=== PATIENT | female | born 1945 | race Caucasian/White ===

== ENCOUNTER 2024-02-14 13:46 | Inpatient (IN) | payer OTHER ==
[~2024-02-14] VITALS: Ht 167.6 cm; Wt 85.2 kg
--- NOTE | 2024-02-14 14:28 | ED.PDOC ---
Dia. trauma (HPI) HPI Comments HPI: 78y F who presents to the ED for chief complaint of fall injury. Pt had the following ED course: -pt states she went to check on neighbor and states she was walking across the street and does not remember but had unknown syncopal episode and was found by unconscious on the sidewalk - pt states she does not remember what happened but states she fell from standing position -pt now in the ED, has noted bruise by the L side of her forehead - pt otherwise in the ED, is alert and oriented x 4 and able to answer all questions and no changes in vision, gait or speech are noted - we otherwise suspect pt had loss of consciousness VITALS: Temp: 97.9 F RR: 17 02 sat : 97% on room air HR: 97 BP: 160/87 PMH: thyroid, hypertension, PSH: hysterectomy, knee repair Social history: denies tobacco use, denies ETOH use, denies drug use Medications: diltiazem, alprazolam, losartan, Allergies: denies HPI: Poor Historian. Past Medcial History: Past Surgical History: REVIEW OF SYSTEMS: CONSTITUTIONAL: Denies acute: fever, diaphoresis, chills, generalized weakness. HEAD: Denies acute: photophobia Eyes: Denies acute: Double vision, vision loss, eye pain, eye discharge. EARS: Denies acute: tinnitus, hearing loss, ear discharge, ear pain, THROAT: Denies acute: sore throat, swelling, difficulty swallowing , pain with swallowing, change in voice. NECK: Denies acute: neck pain, neck swelling, stiff neck. HEART: Denies acute : chest pain, palpitations, LUNGS: Denies acute: SOB, wheezing, cough, hemoptysis ABDOMEN: Denies acute: abdominal pain, Nausea, Vomiting, diarrhea, melena , hematemesis, hematochezia SKIN: Denies acute: rash, redness, lesions, itchiness. EXTREMITIES: Denies acute: calf pain, numbness, tingling, weakness, denies pain in extremity. Denies acute: Low back pain. Neuro: Denies acute: focal neurological deficit, motor or sensory focal neurological deficit, tremors, seizure like activity, confusion, dizziness, change in mental status, loss of bowel or bladder function, cauda equina like symptoms. : Denies acute: dysuria, hematuria, flank pain, increase in urinary frequency. PSYCH: Denies acute: hallucination, suicidal ideation, homicidal ideation. FEMALE: Denies acute: abnormal vaginal bleeding, foul odor, unusual discharge. PHYSICAL EXAM: General: no acute distress, awake and alert. Head: normocephalic, noted left eyebrow forehead contusion and bruise Neck: supple, trachea is midline, no swelling. Throat: Normal phonation. Eyes:, no erythema, no purulent discharge, no proptosis, no icterus. Heart: regular rate, regular rhythm, no significant murmur appreciated. Lungs: no apparent respiratory distress, Able to speak in full sentences. No wheezing, no rhonchi, no crackles. No stridors Clear to auscultation bilaterally. Abdomen: non tender to palpation, non distended, soft, no guarding, no rebound, + bowel sounds. Neuro: Awake, Alert, oriented to name, self, situation, follows commands GCS=15. Speech is normal. Skin: no petechia, no purpura, no cyanosis, non-pale, not jaundice. Lower extremities: --trace bilateral - Pitting edema no deformity, no focal swelling, no calf TTP. Makes eye contact. moves all four extremities. Face: no apparent facial droop. Ambulating in the ED independently. PERRLA, EOM-I. No evidence of entrapment. There is noted left periorbital contusion and left eye swollen lid CN 2-12 are grossly intact, No nystagmus. No nuchal rigidity, Kernig's sign, Brudzinski's sign, no meningeal signs. Chief Complaint: Fall Injury Time Seen by MD: 14:51 Reviewed notes: Medications, Allergies Allergies: Coded Allergies: NO KNOWN ALLERGIES (Unverified , 02/14/24) Information Source: Patient, Spouse Mode of Arrival: Ambulatory Was a procedure done? Was a procedure done?: No X-Ray, Labs, Meds, VS Vital Signs Date Time Temp Pulse Resp B/P (MAP) Pulse Ox O2 Delivery O2 Flow Rate FiO2 02/14/24 14:21 97.9 97 20 160/87 (111) 97 Lab Test 02/14/24 15:59 Range/Units White Blood Count 13.2 H 4.4-10.8 10^3/uL Red Blood Count 5.42 H 4.0-5.20 10^6/uL Hemoglobin 17.2 H 12.2-16.2 g/dL Hematocrit 49.3 H 36.0-46.0 % Mean Corpuscular Volume 91.0 80.0-100.0 fL Mean Corpuscular Hemoglobin 31.8 28.0-32.0 pg Mean Corpuscular Hemoglobin Concent 34.9 32.0-36.0 g/dL Red Cell Distribution Width 13.3 11.8-14.3 % Platelet Count 251 140-450 10^3/uL Mean Platelet Volume 9.2 6.9-10.8 fL Neutrophils (%) (Auto) 85.6 H 37.0-80.0 % Lymphocytes (%) (Auto) 7.9 L 10.0-50.0 % Monocytes (%) (Auto) 5.1 0.0-12.0 % Eosinophils (%) (Auto) 0.8 0.0-7.0 % Basophils (%) (Auto) 0.6 0.0-2.0 % Neutrophils # (Auto) 11.3 H 1.6-8.6 10 ^3/uL Lymphocytes # (Auto) 1.0 0.4-5.4 10 ^3/uL Monocytes # (Auto) 0.7 0-1.3 10 ^3/uL Eosinophils # (Auto) 0.1 0-0.8 10 ^3/uL Basophils # (Auto) 0.1 0-0.2 10 ^3/uL Nucleated Red Blood Cells 0.2 % Sodium Level 142 136-145 mmol/L Potassium Level 3.4 L 3.5-5.1 mmol/L Chloride Level 103 98-107 mmol/L Carbon Dioxide Level 31 20-31 mmol/L Anion Gap 8 5-15 Blood Urea Nitrogen 25 H 9-23 mg/dL Creatinine 1.07 H 0.550-1.02 mg/dL Glomerular Filtration Rate Calc 53 >90 mL/min BUN/Creatinine Ratio 23.4 H 10.0-20.0 Serum Glucose 110 H 74-106 mg/dL Calcium Level 10.7 H 8.7-10.4 mg/dL Total Bilirubin 0.9 0.2-1.0 mg/dL Aspartate Amino Transferase (AST) 33 13-40 U/L Alanine Aminotransferase (ALT) 20 7-40 U/L Alkaline Phosphatase 96 46-116 U/L Troponin I High Sensitivity 7 </=34 ng/L Total Protein 7.6 5.7-8.2 g/dL Albumin 4.8 3.2-4.8 g/dL [address] [address] Ph: [phone] DIAGNOSTIC IMAGING Diagnostic Imaging Report : [id number] Signed PATIENT: PAN DEL TORO ACCT: [id number] UNIT: [id number] : 1945 LOC: ER ROOM / BED: / AGE / SEX: 78 / F ADM STATUS: REG ER SERVICE 1505 ORDERING PHYSICIAN: MATA MOSES DO PROCEDURE(s): FAC2C - MAXILLOFACIAL WITHOUT REASON: fall, head injury ORDER NUMBER(s): [id number], ACCESSION NUMBER(s): [id number] HISTORY: fall, head injury TECHNIQUE: Nonenhanced axial images through the facial bones with coronal and sagittal MPR. Radiation Dose Information: CT Dose: CTDI volume is 56.48 mGy. Dose-length product is 1039.38 mGy*cm FINDINGS: Mandible: No fracture Maxilla: No fracture Pterygoid plates: Intact Zygomatic processes: Intact. Zygomatic arches: Intact Orbits: Soft tissue swelling over the left orbit. Minimally displaced fracture floor of the left orbit. Correlate for entrapment of the inferior rectus muscle. Sinuses: Air-fluid level left maxillary sinus Facial swelling: Soft tissue swelling over the left orbit and left temporal bone. IMPRESSION: 1. No acute facial fractures. 2. Soft tissue swelling over the left eye and left temporal bone with no underlying fracture. 3. Minimally displaced fracture floor of the left orbit. Correlate clinically for clinically significant entrapment of the inferior rectus muscle. 4. Air-fluid level left maxillary sinus. Radiation optimization: All CT scans at this facility use at least one of these dose optimization techniques: automated exposure control mA and/or kV adjustment per patient size (includes targeted exams where dose is matched to clinical indication) or iterative reconstruction. HS:Y ATED BY: MAR MESA Jr., DO DICTATED DATE/TIME: 02/14/24 1556 SIGNED BY: MAR MSEA Jr., DO SIGNED DATE/TIME: 02/14/24 8243 CC: [place] [address] Ph: [phone] DIAGNOSTIC IMAGING Diagnostic Imaging Report : [id number] Signed PATIENT: PAN DEL TORO ACCT: [id number] UNIT: [id number] : 1945 LOC: ER ROOM / BED: / AGE / SEX: 78 / F ADM STATUS: REG ER SERVICE 1417 ORDERING PHYSICIAN: MATA MOSES DO PROCEDURE(s): HWOCT - HEAD WITHOUT CONTRAST REASON: TRAUMA S/P FALL WITH LOC ORDER NUMBER(s): [id number], ACCESSION NUMBER(s): [id number] EXAM: CT HEAD WITHOUT CONTRAST HISTORY: TRAUMA S/P FALL WITH LOC COMPARISON: None TECHNIQUE: Axial images of the head were obtained and reformatted in coronal and sagittal planes. All CT scans at this medical facility are performed using dose modulation techniques as appropriate to a performed exam including the following: Automated exposure control was utilized; adjustment of the MA and/or KV according to patient size; and use of iterative reconstruction technique. CT Dose: CTDI volume is 17.9 mGy. Dose-length product is 1341 mGy*cm FINDINGS: There is no evidence of acute intracranial hemorrhage, mass, mass effect midline shift. There is no hydrocephalus or extra-axial fluid collection. Burnett-white matter differentiation is maintained. There is left periorbital soft tissue swelling. There is a small left supraorbital scalp hematoma. There is likely fracture of the floor of the left orbital wall with sagging of the extraconal fat. There is air-fluid level in the left maxillary sinus with hyperdense contents which may represent blood. The calvarium appears intact. Mastoid air cells are clear. IMPRESSION: 1. No acute intracranial process. 2. There is likely fracture of the floor of the left orbital wall. There is air- fluid level in the left maxillary sinus with hyperdense contents which may represent blood products. 3. Left periorbital soft tissue swelling. There is small left supraorbital scalp hematoma. HS:Y ATED BY: ADOLPH LEAL MD DICTATED DATE/TIME: 02/14/241448 SIGNED BY: ADOLPH LEAL MD SIGNED DATE/TIME: 02/14/241448 CC: [place] [address] Ph: [phone] DIAGNOSTIC IMAGING Diagnostic Imaging Report : [id number] Signed with Addenda PATIENT: PAN DEL TORO ACCT: [id number] UNIT: [id number] : 1945 LOC: ER ROOM / BED: / AGE / SEX: 78 / F ADM STATUS: REG ER SERVICE 16 ORDERING PHYSICIAN: MATA MOSES DO PROCEDURE(s): CS2 - CERVICAL WITHOUT CONTRAST REASON: TRAUMA S/P FALL WITH LOC ORDER NUMBER(s): [id number], ACCESSION NUMBER(s): [id number] ADDENDUM ADDENDUM # 1 HS:Y ORIGINAL REPORT EXAM: CT CERVICAL WITHOUT CONTRAST INDICATION: TRAUMA S/P FALL WITH LOC EXAM DATE: 02/14/2024 02:26 PM COMPARISON: None TECHNIQUE: Multiple axial CT images of the cervical spine were obtained using bone algorithm. Axial and coronal reformatting was done. Bone and soft tissue windows were reviewed. Radiation Dose Information: CT Dose: CTDI volume is 53.82 mGy. Dose-length product is 1341.46 mGy*cm FINDINGS: The cervical alignment is intact. No acute cervical spine fracture is identified. The vertebral body heights are intact. No suspicious osseous lesions are identified. Bony spondylosis and degenerative disc changes worse at C5-6 and 7. Straightening of the normal cervical lordotic curve may be secondary to patient positioning or muscle spasm. There is no prevertebral soft tissue swelling. IMPRESSION: 1. No evidence of acute cervical spine fracture or traumatic malalignment. 2. Degenerative disc changes in bony spondylosis worse at C5-6 and 7. 3. Straightening of the normal cervical lordotic curve. All CT scans at this medical facility are performed using dose modulation techniques as appropriate to a performed exam including the following: Automated exposure control was utilized; adjustment of the MA and/or KV according to patient size; and use of iterative reconstruction technique. ATED BY: MAR MESA Jr., DO DICTATED DATE/TIME: 02/14/24 1535 SIGNED BY: MAR MESA Jr., DO SIGNED DATE/TIME: 02/14/24 1535 CC: EXAM: CT CERVICAL WITHOUT CONTRAST INDICATION: TRAUMA S/P FALL WITH LOC EXAM DATE: 02/14/2024 02:26 PM COMPARISON: None TECHNIQUE: Multiple axial CT images of the cervical spine were obtained using bone algorithm. Axial and coronal reformatting was done. Bone and soft tissue windows were reviewed. Radiation Dose Information: CT Dose: CTDI volume is 53.82 mGy. Dose-length product is 1341.46 mGy*cm FINDINGS: The cervical alignment is intact. No acute cervical spine fracture is identified. The vertebral body heights are intact. No suspicious osseous lesions are identified. Bony spondylosis and degenerative disc changes worse at C5-6 and 7. Straightening of the normal cervical lordotic curve may be secondary to patient positioning or muscle spasm. There is no prevertebral soft tissue swelling. IMPRESSION: 1. No evidence of acute cervical spine fracture or traumatic malalignment. 2. Degenerative disc changes in bony spondylosis worse at C5-6 and 7. 3. Straightening of the normal cervical lordotic curve. All CT scans at this medical facility are performed using dose modulation techniques as appropriate to a performed exam including the following: Automated exposure control was utilized; adjustment of the MA and/or KV according to patient size; and use of iterative reconstruction technique. ATED BY: MAR MESA Jr., DO DICTATED DATE/TIME: 02/14/24 1456 SIGNED BY: MAR MESA Jr., DO SIGNED DATE/TIME: 02/14/24 145 CC: Patient Education/Counseling: Diagnosis, Treatment, Prognosis Family Education/Counseling: Diagnosis, Treatment, Prognosis Comments MDM: Patient presented with the above HPI.----- fall injury-- workup was initiated. patient was found with the above mentioned diagnosis. the following medications were ordered: denies the following tests were ordered: troponin x1, EKG x1, CBC, CMP, CT head without contrast, CT cervical without contrast Patient ED course and VS have been stabilized. Patient has been reassessed in the ED and remained in a stable condition. Patient has been observed in the ED adequate length of time to insure improvement/stability. Escalation of care considered: Consideration of escalation to observation or admission. patient was ADMITTED to the medicine team for further evaluation and treatment of their presentation. All the reports of any imaging studies that were ordered by myself were reviewed by myself. Departure 1 Departure Time of Disposition: 16:40 Impression: Primary Impression: Closed head injury Additional Impressions: Loss of consciousness Head contusion Fracture of left orbital floor Disposition: ADMITTED INPATIENT Admit to: Tele Condition: Guarded Discharged With: Self I personally scribed for MATA MOSES DO ([email or web address]) on 02/14/24 at 14:28. Electronically submitted by Romulo Uribe ([email or web address]). I personally scribed for MATA MOSES DO ([email or web address]) on 02/14/24 at 14:51. Electronically submitted by Romulo Uribe ([email or web address]). I personally scribed for MATA MOSES DO ([email or web address]) on 02/14/24 at 21:05. Electronically submitted by Romulo Uribe ([email or web address]). MATA MOSES DO Feb 14, 2024 14:28
--- NOTE | 2024-02-14 14:50 | DVH ---
EXAM: CT HEAD WITHOUT CONTRAST HISTORY: TRAUMA S/P FALL WITH LOC COMPARISON: None TECHNIQUE: Axial images of the head were obtained and reformatted in coronal and sagittal planes. All CT scans at this medical facility are performed using dose modulation techniques as appropriate t o a performed exam including the following: Automated exposure control was utilized; adjustment of th e MA and/or KV according to patient size; and use of iterative reconstruction technique. CT Dose: CTDI volume is 17.9 mGy. Dose-length product is 1341 mGy*cm FINDINGS: There is no evidence of acute intracranial hemorrhage, mass, mass effect midline shift. There is no h ydrocephalus or extra-axial fluid collection. Burnett-white matter differentiation is maintained. There is left periorbital soft tissue swelling. There is a small left supraorbital scalp hematoma. There is likely fracture of the floor of the left orbital wall with sagging of the extraconal fat. Th ere is air-fluid level in the left maxillary sinus with hyperdense contents which may represent blood . The calvarium appears intact. Mastoid air cells are clear. IMPRESSION: 1. No acute intracranial process. 2. There is likely fracture of the floor of the left orbital wall. There is air-fluid level in the le ft maxillary sinus with hyperdense contents which may represent blood products. 3. Left periorbital soft tissue swelling. There is small left supraorbital scalp hematoma. HS:Y
--- NOTE | 2024-02-14 14:59 | DVH ---
EXAM: CT CERVICAL WITHOUT CONTRAST INDICATION: TRAUMA S/P FALL WITH LOC EXAM DATE: 02/14/2024 02:26 PM COMPARISON: None TECHNIQUE: Multiple axial CT images of the cervical spine were obtained using bone algorithm. Axial a nd coronal reformatting was done. Bone and soft tissue windows were reviewed. Radiation Dose Information: CT Dose: CTDI volume is 53.82 mGy. Dose-length product is 1341.46 mGy*cm FINDINGS: The cervical alignment is intact. No acute cervical spine fracture is identified. The vertebral body heights are intact. No suspicious osseous lesions are identified. Bony spondylosis and degenerative disc changes worse at C5-6 and 7. Straightening of the normal cervical lordotic curve may be secondary to patient positioning or muscle spasm. There is no prevertebral soft tissue swelling. IMPRESSION: 1. No evidence of acute cervical spine fracture or traumatic malalignment. 2. Degenerative disc changes in bony spondylosis worse at C5-6 and 7. 3. Straightening of the normal cervical lordotic curve. All CT scans at this medical facility are performed using dose modulation techniques as appropriate t o a performed exam including the following: Automated exposure control was utilized; adjustment of th e MA and/or KV according to patient size; and use of iterative reconstruction technique.
--- NOTE | 2024-02-14 15:56 | DVH ---
HISTORY: fall, head injury TECHNIQUE: Nonenhanced axial images through the facial bones with coronal and sagittal MPR. Radiation Dose Information: CT Dose: CTDI volume is 56.48 mGy. Dose-length product is 1039.38 mGy*cm FINDINGS: Mandible: No fracture Maxilla: No fracture Pterygoid plates: Intact Zygomatic processes: Intact. Zygomatic arches: Intact Orbits: Soft tissue swelling over the left orbit. Minimally displaced fracture floor of the left or bit. Correlate for entrapment of the inferior rectus muscle. Sinuses: Air-fluid level left maxillary sinus Facial swelling: Soft tissue swelling over the left orbit and left temporal bone. IMPRESSION: 1. No acute facial fractures. 2. Soft tissue swelling over the left eye and left temporal bone with no underlying fracture. 3. Minimally displaced fracture floor of the left orbit. Correlate clinically for clinically signifi cant entrapment of the inferior rectus muscle. 4. Air-fluid level left maxillary sinus. Radiation optimization: All CT scans at this facility use at least one of these dose optimization [place] hniques: automated exposure control mA and/or kV adjustment per patient size (includes targeted exam s where dose is matched to clinical indication) or iterative reconstruction. HS:Y
[2024-02-14 16:23] LABS: Basophils # (auto) 0.1 10 ^3/uL (0-0.2); Basophils % (auto) 0.6 % (0.0-2.0); Eosinophils # (auto) 0.1 10 ^3/uL (0-0.8); Eosinophils % (auto) 0.8 % (0.0-7.0); Hematocrit 49.3 % (36.0-46.0); Hemoglobin 17.2 g/dL (12.2-16.2); Lymphocytes % (auto) 7.9 % (10.0-50.0); Mean Corpuscular Hemoglobin 31.8 pg (28.0-32.0); Mean Corpuscular Hgb Conc. 34.9 g/dL (32.0-36.0); Monocytes # (auto) 0.7 10 ^3/uL (0-1.3); Monocytes % (auto) 5.1 % (0.0-12.0); Neutrophils # (auto) 11.3 10 ^3/uL (1.6-8.6); Neutrophils % (auto) 85.6 % (37.0-80.0); Nucleated Red Blood Cells % 0.2 %; Platelet Count (auto) 251 10^3/uL (140-450); Red Blood Cells 5.42 10^6/uL (4.0-5.20); Red Cell Distribution Width 13.3 % (11.8-14.3); White Blood Cell 13.2 10^3/uL (4.4-10.8)
[2024-02-14 16:41] LABS: Alanine Aminotransferase 20 U/L (7-40); Alkaline Phosphatase 96 U/L (46-116); Anion Gap 8 (5-15); BUN/Creatinine Ratio 23.4 (10.0-20.0); Carbon Dioxide 31 mmol/L (20-31); Chloride 103 mmol/L (98-107); Sodium 142 mmol/L (136-145)
[2024-02-14 16:42] LABS: Albumin 4.8 g/dL (3.2-4.8)
[2024-02-14 16:43] LABS: Aspartate Aminotransferase 33 U/L (13-40); Bilirubin, Total 0.9 mg/dL (0.2-1.0); Total Protein 7.6 g/dL (5.7-8.2)
[2024-02-14 16:44] LABS: Blood Urea Nitrogen 25 mg/dL (9-23); Calcium 10.7 mg/dL (8.7-10.4); Glucose 110 mg/dL (74-106); Potassium 3.4 mmol/L (3.5-5.1)
[2024-02-14] MEDS ORDERED: ONDANSETRON HCL 4 MG/2 ML VIAL IV PRN (19:30)
[2024-02-14] MEDS ORDERED: NITROGLYCERIN 0.4 MG SL TAB SL PRN (19:30)
[2024-02-14] MEDS ORDERED: MORPHINE SULFATE INJ 2 MG/ml SYRG IV PRN ×2 (19:30)
[2024-02-14 20:09] VITALS: PULSE 108; RESP 20; O2SAT 94
[2024-02-14] MEDS: POTASSIUM CHL 20 Meq TABLET PO ONE (20:41)
[2024-02-14] MEDS: ACETAMINOPHEN 325 MG TAB PO PRN (20:44)
[2024-02-14] MEDS: AMPICILLIN & SULBACTAM SODIUM 3 GM in SODIUM CHL 0.9% 100 ML IV SCH (20:44)
--- NOTE | 2024-02-14 22:03 | DVH ---
Carotid Duplex Clinical History: syncope Comparison: None Technique: Duplex Doppler evaluation of the extracranial carotid and vertebral arteries including color Doppler and spectral/pulsed waveform analysis was performed. Findings: RIGHT SIDE: The peak systolic velocities are 65 cm/s in the CCA, 78 cm/s in the ICA. The ICA/CCA ratio is 1.2. The external carotid artery is patent with peak systolic velocity of 93 cm/s proximally. There is appropriate antegrade flow in the right vertebral artery. LEFT SIDE: The peak systolic velocities are 78 cm/s in the CCA, 124 cm/s in the ICA. The ICA/CCA ratio is 1.6. The external carotid artery is patent with peak systolic velocity of 117 cm/s proximally. There is appropriate antegrade flow in the left vertebral artery. IMPRESSION: 1. No hemodynamically significant stenosis noted in the right carotid system. 2. No hemodynamically significant stenosis noted in the left carotid system. Reference: Radiology 2003; 229:340-346 Normal ICA PSV is <125 cm/sec and no plaque or intimal thickening is visible sonographically additional criteria include ICA/CCA PSV ratio <2.0 and ICA EDV <40 cm/sec <50% ICA stenosis ICA PSV is <125 cm/sec and plaque or intimal thickening is visible sonographically additional criteria include ICA/CCA PSV ratio <2.0 and ICA EDV <40 cm/sec 50-69% ICA stenosis ICA PSV is 125-230 cm/sec and plaque is visible sonographically additional criteria include ICA/CCA PSV ratio of 2.0-4.0 and ICA EDV of 40-100 cm/sec 70% ICA stenosis but less than near occlusion ICA PSV is >230 cm/sec and visible plaque and luminal narrowing are seen at magallon-scale and color Dopp ler ultrasound (the higher the Doppler parameters lie above the threshold of 230 cm/sec, the greater the likelihood of severe disease) additional criteria include ICA/CCA PSV ratio >4 and ICA EDV >100 cm/sec
--- NOTE | 2024-02-14 22:41 | DVHHP2 ---
History of Present Illness Reason for Visit: Syncope History of Present Illness 78-year-old female presents for evaluation of syncopal episode. Patient reports earlier today she was going up the steps to check up on her elderly neighbor when she collapsed. She reports being awakened by her . She states being unconscious for over 10 minutes. She reports prior to the episode feeling mildly dizzy. She states having left periorbital pain. Noted to have hematoma to left periorbital region. Denies blurred vision or unilateral weakness. No chest pain or shortness for breath. No other acute complaints reported. Past Medical History Hypertension thyroid Past Surgical History Knee repair and hysterectomy Family History Noncontributory Smoke: No ALCOHOL: none Drugs: None Lives: with Family Review of Systems Review of Systems Review of systems are currently negative otherwise addressed in HPI Allergies: Coded Allergies: NO KNOWN ALLERGIES (Unverified , 02/14/24) Medications Current Medications Medications Dose Ordered Sig/Tha Route Start Time Stop Time Status Last Admin Dose Admin Ampicillin Sodium/ Sulbactam Sodium 3 gm/Sodium Chloride 100 ml @ 100 mls/hr Q6H IV 02/14/24 16:30 Diltiazem HCl 240 mg DAILY PO 02/15/24 10:00 Levothyroxine Sodium 112 mcg QAM@0600 PO 02/15/24 06:00 Acetaminophen/ Hydrocodone Bitart 1 tab Q4HP PRN PO 02/14/24 19:30 Ondansetron HCl 4 mg Q4HP PRN IV 02/14/24 19:30 Enoxaparin Sodium 40 mg DAILY SC 02/15/24 10:00 Acetaminophen 650 mg Q6HP PRN PO 02/14/24 19:30 02/14/24 20:44 650 MG Morphine Sulfate 2 mg Q6HPRN PRN IV 02/14/24 19:30 Nitroglycerin 0.4 mg Q5MINP PRN SL 02/14/24 19:30 Morphine Sulfate 2 mg Q30M PRN IV 02/14/24 19:30 Exam Vital Signs Vital Signs Date Time Temp Pulse Resp B/P (MAP) Pulse Ox O2 Delivery O2 Flow Rate FiO2 02/14/24 22:06 98.9 02/14/24 21:34 112 16 160/91 (114) 94 02/14/24 20:09 Room Air* 0 21 Exam Gen: 78-year-old female in mild distress Skin: Warm, dry, normal color and texture, no rash. HEENT: Left periorbital hematoma, mucous membranes moist and pink. Neck: Cervical and supraclavicular nodes normal without enlargement, trachea is midline, thyroid gland is normal without masses. Pulmonary: Clear to auscultation and percussion bilaterally. Cardiac: Regular rate and rhythm. No murmur Abdomen: Soft, nontender, nondistended, bowel sounds present all 4 quadrants, no guarding, no rigidity, no organomegaly. Extremities: No cyanosis, clubbing, no edema Neuro: Cranial nerves II through XII grossly intact, normal affect and speech, no focal motor deficits. Labs/Xrays ORDERING PHYSICIAN: MATA MOSES DO PROCEDURE(s): CS2 - CERVICAL WITHOUT CONTRAST REASON: TRAUMA S/P FALL WITH LOC ORDER NUMBER(s): [id number], ACCESSION NUMBER(s): [id number] ADDENDUM ADDENDUM # 1 HS:Y ORIGINAL REPORT EXAM: CT CERVICAL WITHOUT CONTRAST INDICATION: TRAUMA S/P FALL WITH LOC EXAM DATE: 02/14/2024 02:26 PM COMPARISON: None TECHNIQUE: Multiple axial CT images of the cervical spine were obtained using bone algorithm. Axial and coronal reformatting was done. Bone and soft tissue windows were reviewed. Radiation Dose Information: CT Dose: CTDI volume is 53.82 mGy. Dose-length product is 1341.46 mGy*cm FINDINGS: The cervical alignment is intact. No acute cervical spine fracture is identified. The vertebral body heights are intact. No suspicious osseous lesions are identified. Bony spondylosis and degenerative disc changes worse at C5-6 and 7. Straightening of the normal cervical lordotic curve may be secondary to patient positioning or muscle spasm. There is no prevertebral soft tissue swelling. IMPRESSION: 1. No evidence of acute cervical spine fracture or traumatic malalignment. 2. Degenerative disc changes in bony spondylosis worse at C5-6 and 7. 3. Straightening of the normal cervical lordotic curve. All CT scans at this medical facility are performed using dose modulation techniques as appropriate to a performed exam including the following: Automated exposure control was utilized; adjustment of the MA and/or KV according to patient size; and use of iterative reconstruction technique. ATED BY: MAR MESA Jr., DO DICTATED DATE/TIME: 02/14/241534 SIGNED BY: MAR MESA Jr., DO SIGNED DATE/TIME: 02/14/241534 CC: EXAM: CT CERVICAL WITHOUT CONTRAST INDICATION: TRAUMA S/P FALL WITH LOC EXAM DATE: 02/14/2024 02:26 PM COMPARISON: None TECHNIQUE: Multiple axial CT images of the cervical spine were obtained using bone algorithm. Axial and coronal reformatting was done. Bone and soft tissue windows were reviewed. Radiation Dose Information: CT Dose: CTDI volume is 53.82 mGy. Dose-length product is 1341.46 mGy*cm FINDINGS: The cervical alignment is intact. No acute cervical spine fracture is identified. The vertebral body heights are intact. No suspicious osseous lesions are identified. Bony spondylosis and degenerative disc changes worse at C5-6 and 7. Straightening of the normal cervical lordotic curve may be secondary to patient positioning or muscle spasm. There is no prevertebral soft tissue swelling. IMPRESSION: 1. No evidence of acute cervical spine fracture or traumatic malalignment. 2. Degenerative disc changes in bony spondylosis worse at C5-6 and 7. 3. Straightening of the normal cervical lordotic curve. All CT scans at this medical facility are performed using dose modulation techniques as appropriate to a performed exam including the following: Automated exposure control was utilized; adjustment of the MA and/or KV according to patient size; and use of iterative reconstruction technique. RING PHYSICIAN: MATA MOSES DO PROCEDURE(s): HWOCT - HEAD WITHOUT CONTRAST REASON: TRAUMA S/P FALL WITH LOC ORDER NUMBER(s): [id number], ACCESSION NUMBER(s): [id number] EXAM: CT HEAD WITHOUT CONTRAST HISTORY: TRAUMA S/P FALL WITH LOC COMPARISON: None TECHNIQUE: Axial images of the head were obtained and reformatted in coronal and sagittal planes. All CT scans at this medical facility are performed using dose modulation techniques as appropriate to a performed exam including the following: Automated exposure control was utilized; adjustment of the MA and/or KV according to patient size; and use of iterative reconstruction technique. CT Dose: CTDI volume is 17.9 mGy. Dose-length product is 1341 mGy*cm FINDINGS: There is no evidence of acute intracranial hemorrhage, mass, mass effect midline shift. There is no hydrocephalus or extra-axial fluid collection. Burnett-white matter differentiation is maintained. There is left periorbital soft tissue swelling. There is a small left supraorbital scalp hematoma. There is likely fracture of the floor of the left orbital wall with sagging of the extraconal fat. There is air-fluid level in the left maxillary sinus with hyperdense contents which may represent blood. The calvarium appears intact. Mastoid air cells are clear. IMPRESSION: 1. No acute intracranial process. 2. There is likely fracture of the floor of the left orbital wall. There is air- fluid level in the left maxillary sinus with hyperdense contents which may represent blood products. 3. Left periorbital soft tissue swelling. There is small left supraorbital scalp hematoma. HS:Y RING PHYSICIAN: MATA MOSES DO PROCEDURE(s): FAC2C - MAXILLOFACIAL WITHOUT REASON: fall, head injury ORDER NUMBER(s): [id number], ACCESSION NUMBER(s): [id number] HISTORY: fall, head injury TECHNIQUE: Nonenhanced axial images through the facial bones with coronal and sagittal MPR. Radiation Dose Information: CT Dose: CTDI volume is 56.48 mGy. Dose-length product is 1039.38 mGy*cm FINDINGS: Mandible: No fracture Maxilla: No fracture Pterygoid plates: Intact Zygomatic processes: Intact. Zygomatic arches: Intact Orbits: Soft tissue swelling over the left orbit. Minimally displaced fracture floor of the left orbit. Correlate for entrapment of the inferior rectus muscle. Sinuses: Air-fluid level left maxillary sinus Facial swelling: Soft tissue swelling over the left orbit and left temporal bone. IMPRESSION: 1. No acute facial fractures. 2. Soft tissue swelling over the left eye and left temporal bone with no underlying fracture. 3. Minimally displaced fracture floor of the left orbit. Correlate clinically for clinically significant entrapment of the inferior rectus muscle. 4. Air-fluid level left maxillary sinus. Radiation optimization: All CT scans at this facility use at least one of these dose optimization techniques: automated exposure control mA and/or kV adjustment per patient size (includes targeted exams where dose is matched to clinical indication) or iterative reconstruction. HS:Y Labs Test 02/14/24 15:59 Range/Units White Blood Count 13.2 H 4.4-10.8 10^3/uL Red Blood Count 5.42 H 4.0-5.20 10^6/uL Hemoglobin 17.2 H 12.2-16.2 g/dL Hematocrit 49.3 H 36.0-46.0 % Mean Corpuscular Volume 91.0 80.0-100.0 fL Mean Corpuscular Hemoglobin 31.8 28.0-32.0 pg Mean Corpuscular Hemoglobin Concent 34.9 32.0-36.0 g/dL Red Cell Distribution Width 13.3 11.8-14.3 % Platelet Count 251 140-450 10^3/uL Mean Platelet Volume 9.2 6.9-10.8 fL Neutrophils (%) (Auto) 85.6 H 37.0-80.0 % Lymphocytes (%) (Auto) 7.9 L 10.0-50.0 % Monocytes (%) (Auto) 5.1 0.0-12.0 % Eosinophils (%) (Auto) 0.8 0.0-7.0 % Basophils (%) (Auto) 0.6 0.0-2.0 % Neutrophils # (Auto) 11.3 H 1.6-8.6 10 ^3/uL Lymphocytes # (Auto) 1.0 0.4-5.4 10 ^3/uL Monocytes # (Auto) 0.7 0-1.3 10 ^3/uL Eosinophils # (Auto) 0.1 0-0.8 10 ^3/uL Basophils # (Auto) 0.1 0-0.2 10 ^3/uL Nucleated Red Blood Cells 0.2 % Sodium Level 142 136-145 mmol/L Potassium Level 3.4 L 3.5-5.1 mmol/L Chloride Level 103 98-107 mmol/L Carbon Dioxide Level 31 20-31 mmol/L Anion Gap 8 5-15 Blood Urea Nitrogen 25 H 9-23 mg/dL Creatinine 1.07 H 0.550-1.02 mg/dL Glomerular Filtration Rate Calc 53 >90 mL/min BUN/Creatinine Ratio 23.4 H 10.0-20.0 Serum Glucose 110 H 74-106 mg/dL Calcium Level 10.7 H 8.7-10.4 mg/dL Total Bilirubin 0.9 0.2-1.0 mg/dL Aspartate Amino Transferase (AST) 33 13-40 U/L Alanine Aminotransferase (ALT) 20 7-40 U/L Alkaline Phosphatase 96 46-116 U/L Troponin I High Sensitivity 7 </=34 ng/L Total Protein 7.6 5.7-8.2 g/dL Albumin 4.8 3.2-4.8 g/dL Assessment/Plan Assessment/Plan Assessment Syncope Head contusion Scalp hematoma Left orbital fracture Hypertension Plan Admit the patient to telemetry to the hospitalist Cardiology consultation Echocardiogram/carotid ultrasound pending Resume home medications Orthostatic vital signs Continue treatment per orders. Plan discussed with: Patient My Orders Orders - ELISABETH ERNANDEZ Procedure Category Date Status Time * Cardiology Consult CONS 02/14/24 Transmitted 19:17 Diltiazem Er Capsule PHA 02/15/24 In Process (Cardizem Er Capsul 10:00 Levothyroxine Tablet PHA 02/15/24 In Process (Synthroid Tablet) 06:00 Basic Metabolic Panel LAB 02/15/24 Verified 04:00 Admit ADMIT 02/14/24 Transmitted 19:17 Hydrocodone-Acet PHA 02/14/24 In Process 5/325mg Tab (Cisco 19:30 Ondansetron Hcl PHA 02/14/24 In Process (Zofran) 19:30 Enoxaparin Sodium PHA 02/15/24 In Process (Lovenox) 10:00 Cardiac DIET 02/15/24 Transmitted Diet-2gna,Lofat,Lochol Breakfast Echo 2d Mode Cardiac US 02/14/24 Logged DOP 19:17 Carotid Duplx W Color US 02/14/24 Resulted DOP 19:17 Condition: Fair YUNIER 02/14/24 In Process 19:17 Acetaminophen Tablet PHA 02/14/24 In Process (Tylenol Tablet) 19:30 Bedrest With Bathroom [facility] 02/14/24 In Process Privileg 19:17 Morphine Sulfate [facility] 02/14/24 In Process Injection 19:30 Nitroglycerin [facility] 02/14/24 In Process Sublingual (Ntrostat 19:30 Morphine Sulfate PHA 02/14/24 In Process Injection 19:30 Stat Ekg For Chest [facility] 02/14/24 In Process Pain 19:17 Notify Md Of Changes [facility] 02/14/24 In Process From Base 19:17 Router Operator Pin For [facility] 02/14/24 In Process 24 Hours 19:17 Emergency Dysrhythmia [facility] 02/14/24 In Process Protocol 19:17 Rhythm Strips Once [facility] 02/14/24 In Process Every Shift 19:17 Oxygen By Nasal RT 02/14/24 Transmitted Cannula 19:17 Hydralazine Injection [facility] 02/14/24 Logged (Apresoline Inject 22:45 Date of Service: Feb 14, 2024 Billing Provider: ELISABETH ERNANDEZ Common Visit Codes: [id number] INP/OBS CARE (HIGH) ELISABETH ERNANDEZ Feb 14, 2024 22:41
[2024-02-14] MEDS: OXYMETAZOLINE HCL 0.05 % NASAL SPRAY 15ML EACHNOSTRI SCH (22:45)
[2024-02-14] MEDS: hydrALAZINE HCL 20 MG/ML VL IV ONE (23:21)
[2024-02-14] MEDS ORDERED: LEVO112T4 PO (23:34)
[2024-02-14] MEDS ORDERED: ALPR0.5T8 PO (23:34)
[2024-02-14] MEDS ORDERED: LOSA50TA30 PO (23:34)
[2024-02-14] MEDS ORDERED: DILT-29 PO (23:34)
[2024-02-15] VITALS (7 sets, daily range): BP systolic 137–161; BP diastolic 51–78; PULSE 73–103; RESP 14–20; TEMP 97.7–98.4; O2SAT 94–100
[2024-02-15] MEDS: HYDROcodone-ACET 5/325MG TAB PO PRN (01:23)
[2024-02-15] MEDS: LEVOTHYROXINE SODIUM 112 MCG TAB PO SCH (06:03)
[2024-02-15 07:46] LABS: Chloride 106 mmol/L (98-107); Sodium 140 mmol/L (136-145)
[2024-02-15 07:47] LABS: Anion Gap 6 (5-15); Calcium 9.8 mg/dL (8.7-10.4); Carbon Dioxide 28 mmol/L (20-31)
[2024-02-15 07:52] LABS: BUN/Creatinine Ratio 22.1 (10.0-20.0); Blood Urea Nitrogen 19 mg/dL (9-23); Glucose 100 mg/dL (74-106)
[2024-02-15 08:05] LABS: Potassium 2.9 mmol/L (3.5-5.1)
[2024-02-15] MEDS: dilTIAZem 120MG ER CAP PO SCH (09:14)
[2024-02-15] MEDS: ENOXAPARIN SOD 40 MG/0.4 ML SYRINGE SC SCH (09:16)
--- NOTE | 2024-02-15 13:28 | DVHINCON2 ---
Date Seen: Feb 15, 2024 Referring Physician ESTELLA Hartley Reason for Consultation Syncope History of Present Illness This is a 78-year-old female patient who presents to the emergency room with chief complaint of mechanical fall. Cardiology was consulted for syncope. The patient reports that she was walking to her neighbor's home when she tripped over a step on the porch. She reports falling face down and hitting her head. She reports loss of consciousness. Her who was across the street found her and called EMS. The patient was brought to the emergency room for further evaluation. Imaging revealed a minimally displaced fracture of the left orbit. No initial twelve lead electrocardiogram was done in the emergency room. A twelve lead electrocardiogram was ordered at time of assessment and reveals normal sinus rhythm with nonspecific ST depression to anterior leads. She denies any cardiac symptoms including chest pain, palpitations, or shortness of breath. Significant past medical history includes hypertension, thyroid disease, and obesity. Home medication list significant for Cardizem. When asked patient was asked why she takes Cardizem, she reports her primary doctor treats her blood pressure with Cardizem. She denies any history of arrhythmias. Past Medical History Past medical history reviewed. No other significant than mentioned above. Past Surgical History Hysterectomy Family History: FH: alcoholism G8 FATHER, FH: breast cancer G8 MOTHER, , Age: 60 years and older Family History Family history reviewed. Social History Denies the use of tobacco, alcohol or illicit drugs. Allergies: Coded Allergies: NO KNOWN ALLERGIES (Unverified , 02/14/24) Home Meds Reported Medications Alprazolam (Alprazolam) 0.5 Mg Tab, 1 TAB PO DAILY PRN for ANXIETY 02/14/24 Levothyroxine Sodium (Levothyroxine Sodium) 112 Mcg Tab, 1 TAB PO DAILY 02/14/24 Losartan Potassium & Hydrochlo (Losartan Potassium/Hydroc) 1 Tab Tab, 1 TAB PO DAILY, TAB 02/14/24 Diltiazem Hcl (DILTIAZEM HCL ER) 240 Mg Cap, 1 CAP PO DAILY 02/14/24 Home Meds Home medications reviewed. Current Medications Current Medications Medications (Trade) Dose Ordered Sig/Tha Route PRN Reason Start Time Stop Time Status Last Admin Ampicillin Sodium/ Sulbactam Sodium 3 gm/Sodium Chloride 100 ml @ 100 mls/hr Q6H IV 02/14/24 16:30 02/15/24 11:19 Diltiazem HCl (Cardizem ER Capsule) 240 mg DAILY PO 02/15/24 10:00 02/15/24 09:14 Levothyroxine Sodium (Synthroid Tablet) 112 mcg QAM@0600 PO 02/15/24 06:00 02/15/24 06:03 Acetaminophen/ Hydrocodone Bitart (Salcha 5/325MG Tab) 1 tab Q4HP PRN PO MODERATE PAIN (4-6 PAIN SCALE) 02/14/24 19:30 02/15/24 01:23 Ondansetron HCl (Zofran) 4 mg Q4HP PRN IV NAUSEA / VOMITING 02/14/24 19:30 Enoxaparin Sodium (Lovenox) 40 mg DAILY SC 02/15/24 10:00 02/15/24 09:16 Acetaminophen (Tylenol Tablet) 650 mg Q6HP PRN PO PAIN SCALE 1-3 OR TEMP>100.4 02/14/24 19:30 02/15/24 09:15 Morphine Sulfate 2 mg Q6HPRN PRN IV SEVERE PAIN (7-10 PAIN SCALE) 02/14/24 19:30 Nitroglycerin (Ntrostat Sublingual) 0.4 mg Q5MINP PRN SL FOR CHEST PAIN 02/14/24 19:30 Morphine Sulfate 2 mg Q30M PRN IV FOR CHEST PAIN 02/14/24 19:30 Oxymetazoline HCl (Afrin) 2 spr BID EACHNOSTRI 02/14/24 22:45 02/15/24 09:15 Review of Systems Constitutional: No symptom reported Ears, Nose, & Throat: No symptom reported Eyes: No symptom reported Neurological: No symptoms reported Pulmonary/Respiratory: No symptoms reported Cardiovascular: No symptom reported Gastrointestinal: No symptom reported Genitourinary: No symptom reported Musculoskeletal: Mechanical fall Skin: No symptom reported Psychiatric: No symptom reported Endocrine: No symptom reported Hematologic/Lymphatic: No symptom reported Vital Signs Vital Signs Date Time Temp Pulse Resp B/P (MAP) Pulse Ox O2 Delivery O2 Flow Rate FiO2 02/15/24 09:14 103 137/61 02/15/24 08:00 98.4 16 95 98.4 02/15/24 08:00 Room Air* 0 21 Physical Exam General Appearance: Cooperative. Well-developed. Well-nourished. No acute distress. Pulmonary/Respiratory: Clear, bilateral breaths sounds. Cardiovascular/Chest: Regular rate and rhythm. Peripheral Pulses: 2+ Radial (R). 2+ Radial (L). 2+ Pedal (R). 2+ Pedal (L) Abdominal Exam: Normal bowel sounds. Ankle Exam: Negative ankle edema Lower extremities: Negative lower extremity edema Neuro/Mental Status: A/OX4, coherent. Thoughts/Psych: Normal thought pattern. Appropriate mood and affect. Good judgment and insight. Appearance: No acute distress. Skin Exam: Large area of ecchymosis over left eye and bridge of nose Labs/Diagnostic Data Labs Test 02/15/24 06:54 02/14/24 15:59 Range/Units Sodium Level 140 136-145 mmol/L Potassium Level 2.9 L 3.5-5.1 mmol/L Chloride Level 106 98-107 mmol/L Carbon Dioxide Level 28 20-31 mmol/L Anion Gap 6 5-15 Blood Urea Nitrogen 19 9-23 mg/dL Creatinine 0.86 0.550-1.02 mg/dL Glomerular Filtration Rate Calc 69 >90 mL/min BUN/Creatinine Ratio 22.1 H 10.0-20.0 Serum Glucose 100 74-106 mg/dL Calcium Level 9.8 8.7-10.4 mg/dL White Blood Count 13.2 H 4.4-10.8 10^3/uL Red Blood Count 5.42 H 4.0-5.20 10^6/uL Hemoglobin 17.2 H 12.2-16.2 g/dL Hematocrit 49.3 H 36.0-46.0 % Mean Corpuscular Volume 91.0 80.0-100.0 fL Mean Corpuscular Hemoglobin 31.8 28.0-32.0 pg Mean Corpuscular Hemoglobin Concent 34.9 32.0-36.0 g/dL Red Cell Distribution Width 13.3 11.8-14.3 % Platelet Count 251 140-450 10^3/uL Mean Platelet Volume 9.2 6.9-10.8 fL Neutrophils (%) (Auto) 85.6 H 37.0-80.0 % Lymphocytes (%) (Auto) 7.9 L 10.0-50.0 % Monocytes (%) (Auto) 5.1 0.0-12.0 % Eosinophils (%) (Auto) 0.8 0.0-7.0 % Basophils (%) (Auto) 0.6 0.0-2.0 % Neutrophils # (Auto) 11.3 H 1.6-8.6 10 ^3/uL Lymphocytes # (Auto) 1.0 0.4-5.4 10 ^3/uL Monocytes # (Auto) 0.7 0-1.3 10 ^3/uL Eosinophils # (Auto) 0.1 0-0.8 10 ^3/uL Basophils # (Auto) 0.1 0-0.2 10 ^3/uL Nucleated Red Blood Cells 0.2 % Total Bilirubin 0.9 0.2-1.0 mg/dL Aspartate Amino Transferase (AST) 33 13-40 U/L Alanine Aminotransferase (ALT) 20 7-40 U/L Alkaline Phosphatase 96 46-116 U/L Troponin I High Sensitivity 7 </=34 ng/L Total Protein 7.6 5.7-8.2 g/dL Albumin 4.8 3.2-4.8 g/dL Assessment Status post mechanical fall Acute fracture of left orbit Rule out structural heart disease Hypertension Hypokalemia Thyroid disease Obese Plan/Recommendation We will continue with the following plan/recommendations (Dr. Leal): Patient seen and examined at bedside with . We will proceed with obtaining a transthoracic echocardiogram to evaluate cardiac function. After discussing events that led to patient coming to the emergency room, it was established that the patient sustained a mechanical fall. The patient denies any lightheadedness or dizziness prior to fall. The patient clearly remembers that she was walking up a front porch and tripped over a step. In the setting of an unremarkable echocardiogram, there is no further inpatient cardiac workup indicated this time. Thank you for allowing us to care for this patient. Please call with any questions or concerns. Critical care time spent: 38 minutes This medical document was created using an electronic medical record system with voice recognition software and computerized dictation system. Although this document has been carefully reviewed, there might still be some phonetic and typographical errors. Occasional wrong-word or ``sound-alike substitutions may have occurred due to the inherent limitations of voice recognition software. These areas are purely typographical due to imperfections of the software programs and do not reflect any compromise in the patient's medical care. Please read the chart carefully and recognize, using context, where these substitutions have occurred. Plan discussed with: Patient Date of Service: Feb 15, 2024 Billing Provider: CHARLES IBARRA Cardiology Common Codes: [id number] INP/OBS CARE (High) Cardiology Consultation Codes: [id number] CONSULT <45MIN CHARLES IBARRA Feb 15, 2024 13:28
[2024-02-15 17:15] LABS: Magnesium 2.1 mg/dL (1.6-2.6)
[2024-02-15] MEDS: POTASSIUM EFFERVESENT TAB 25 MEQ PO ONE (17:35)
[2024-02-15 17:47] LABS: Potassium 3.2 mmol/L (3.5-5.1)
--- NOTE | 2024-02-15 19:02 | DVHPN2 ---
Subjective Assuming the care of the patient from today onwards. Patient was admitted with the hospitalist team. Maxillofacial CT finding has been noted which shows minimally displaced acute fracture of the orbit, maxillofacial surgery Department is not available eventually pupils try higher level of care. 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 Medications Current Medications Medications Dose Ordered Sig/Tha Route Start Time Stop Time Status Last Admin Dose Admin Ampicillin Sodium/ Sulbactam Sodium 3 gm/Sodium Chloride 100 ml @ 100 mls/hr Q6H IV 02/14/24 16:30 02/15/24 17:35 100 MLS/HR Diltiazem HCl 240 mg DAILY PO 02/15/24 10:00 02/15/24 09:14 240 MG Levothyroxine Sodium 112 mcg QAM@0600 PO 02/15/24 06:00 02/15/24 06:03 112 MCG Acetaminophen/ Hydrocodone Bitart 1 tab Q4HP PRN PO 02/14/24 19:30 02/15/24 01:23 1 TAB Ondansetron HCl 4 mg Q4HP PRN IV 02/14/24 19:30 Enoxaparin Sodium 40 mg DAILY SC 02/15/24 10:00 02/15/24 09:16 40 MG Acetaminophen 650 mg Q6HP PRN PO 02/14/24 19:30 02/15/24 17:44 650 MG Morphine Sulfate 2 mg Q6HPRN PRN IV 02/14/24 19:30 Nitroglycerin 0.4 mg Q5MINP PRN SL 02/14/24 19:30 Morphine Sulfate 2 mg Q30M PRN IV 02/14/24 19:30 Oxymetazoline HCl 2 spr BID EACHNOSTRI 02/14/24 22:45 02/15/24 17:44 2 SPR Laboratory Results Laboratory Tests 02/14/24 15:59 02/15/24 06:54 02/15/24 16:35 Chemistry Test 02/15/24 06:54 02/15/24 16:35 Calcium Level 9.8 mg/dL (8.7-10.4) Magnesium Level 2.1 mg/dL (1.6-2.6) Lipid panel Test 02/15/24 16:35 Cholesterol Level 154 mg/dL (< 200) HDL Cholesterol 56 mg/dL (40-59) Triglycerides Level 93 mg/dL (< 150) HgA1c, TSH Test 02/15/24 16:35 Thyroid Stimulating Hormone (TSH) 2.86 uIU/mL (0.55-4.78) Assessment/Plan Assessment/Plan 78-year-old female with a known history of hypertension, hypothyroidism initially presented to the hospital with a status post mechanical fall found to have 1. Syncope with closed head injury 2. Left black eye 3. Acute minimally displaced fracture of the floor of the orbit left eye. 4. Hypertension 5. 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 -we will follow up Cardiology for any structural heart disease. Plan discussed with: Patient My Orders Orders - CHARLETTE CLARK MD Procedure Category Date Status Time * Ammonium Hydroxide Operator CONS 02/15/24 Verified Consult Problem List: (1) Closed head injury (2) Head contusion (3) Fracture of left orbital floor Date of Service: Feb 15, 2024 Billing Provider: CHARLETTE CLARK MD Common Visit Codes: [id number] INP/OBS CARE(MOD) CHARLETTE CLARK MD Feb 15, 2024 19:02
--- NOTE | 2024-02-15 20:56 | DVHINCON2 ---
Date Seen: Feb 15, 2024 Referring Physician ESTELLA Hartley Reason for Consultation Syncope History of Present Illness This is a 78-year-old female with a past medical history of hypertension, thyroid disease, and obesity who presents to the ED with complaint of mechanical fall. Cardiology was consulted for syncope. The patient reports that she was walking to her neighbor's home when she tripped over a step on the porch. She r eports falling face down and hitting her head. She reports loss of consciousness. Her who was across the street found her and called EMS. Imaging revealed a minimally displaced fracture of the left orbit. No initial twelve lead electrocardiogram was done in the emergency room. A twelve lead electrocardiogram was ordered at time of assessment and reveals normal sinus rhythm with nonspecific ST depression to anterior leads. She denies any cardiac symptoms including chest pain, palpitations, or shortness of breath. Home medication list significant for Cardizem. When asked patient was asked why she takes Cardizem, she reports her primary doctor treats her blood pressure with Cardizem. She denies any history of arrhythmias. K 2.9. Patient was admitted to the hospital. I am asked to consult on this patient. Family History: FH: alcoholism G8 FATHER, FH: breast cancer G8 MOTHER, , Age: 60 years and older Allergies: Coded Allergies: NO KNOWN ALLERGIES (Unverified , 02/14/24) Home Meds Reported Medications Alprazolam (Alprazolam) 0.5 Mg Tab, 1 TAB PO DAILY PRN for ANXIETY 02/14/24 Levothyroxine Sodium (Levothyroxine Sodium) 112 Mcg Tab, 1 TAB PO DAILY 02/14/24 Losartan Potassium & Hydrochlo (Losartan Potassium/Hydroc) 1 Tab Tab, 1 TAB PO DAILY, TAB 02/14/24 Diltiazem Hcl (DILTIAZEM HCL ER) 240 Mg Cap, 1 CAP PO DAILY 02/14/24 Current Medications Current Medications Medications (Trade) Dose Ordered Sig/Tha Route PRN Reason Start Time Stop Time Status Last Admin Diltiazem HCl (Cardizem ER Capsule) 240 mg DAILY PO 02/15/24 10:00 02/15/24 09:14 Levothyroxine Sodium (Synthroid Tablet) 112 mcg QAM@0600 PO 02/15/24 06:00 02/15/24 06:03 Acetaminophen/ Hydrocodone Bitart (Tatums 5/325MG Tab) 1 tab Q4HP PRN PO MODERATE PAIN (4-6 PAIN SCALE) 02/14/24 19:30 02/15/24 01:23 Ondansetron HCl (Zofran) 4 mg Q4HP PRN IV NAUSEA / VOMITING 02/14/24 19:30 Enoxaparin Sodium (Lovenox) 40 mg DAILY SC 02/15/24 10:00 02/15/24 09:16 Acetaminophen (Tylenol Tablet) 650 mg Q6HP PRN PO PAIN SCALE 1-3 OR TEMP>100.4 02/14/24 19:30 02/15/24 09:15 Morphine Sulfate 2 mg Q6HPRN PRN IV SEVERE PAIN (7-10 PAIN SCALE) 02/14/24 19:30 Nitroglycerin (Ntrostat Sublingual) 0.4 mg Q5MINP PRN SL FOR CHEST PAIN 02/14/24 19:30 Morphine Sulfate 2 mg Q30M PRN IV FOR CHEST PAIN 02/14/24 19:30 Oxymetazoline HCl (Afrin) 2 spr BID EACHNOSTRI 02/14/24 22:45 02/15/24 09:15 Review of Systems Constitutional: No symptom reported Ears, Nose, & Throat: No symptom reported Eyes: No symptom reported Neurological: No symptoms reported Pulmonary/Respiratory: No symptoms reported Cardiovascular: No symptom reported Gastrointestinal: No symptom reported Genitourinary: No symptom reported Musculoskeletal: Mechanical fall Skin: No symptom reported Psychiatric: No symptom reported Endocrine: No symptom reported Hematologic/Lymphatic: No symptom reported Vital Signs Vital Signs Date Time Temp Pulse Resp B/P (MAP) Pulse Ox O2 Delivery O2 Flow Rate FiO2 02/15/24 13:37 97.8 81 14 143/78 (99) 94 97.8 02/15/24 08:00 Room Air* 0 21 Physical Exam GENERAL: Awake, alert, oriented. LUNGS: Clear. CARDIOVASCULAR: Heart sounds are good. ABDOMEN: Soft. SKIN: Large area of ecchymosis over left eye and bridge of nose. Labs/Diagnostic Data Labs Test 02/15/24 16:35 02/15/24 06:54 02/14/24 15:59 Range/Units Sodium Level 140 136-145 mmol/L Chloride Level 106 98-107 mmol/L Carbon Dioxide Level 28 20-31 mmol/L Anion Gap 6 5-15 Blood Urea Nitrogen 19 9-23 mg/dL Creatinine 0.86 0.550-1.02 mg/dL Glomerular Filtration Rate Calc 69 >90 mL/min BUN/Creatinine Ratio 22.1 H 10.0-20.0 Serum Glucose 100 74-106 mg/dL Calcium Level 9.8 8.7-10.4 mg/dL White Blood Count 13.2 H 4.4-10.8 10^3/uL Red Blood Count 5.42 H 4.0-5.20 10^6/uL Hemoglobin 17.2 H 12.2-16.2 g/dL Hematocrit 49.3 H 36.0-46.0 % Mean Corpuscular Volume 91.0 80.0-100.0 fL Mean Corpuscular Hemoglobin 31.8 28.0-32.0 pg Mean Corpuscular Hemoglobin Concent 34.9 32.0-36.0 g/dL Red Cell Distribution Width 13.3 11.8-14.3 % Platelet Count 251 140-450 10^3/uL Mean Platelet Volume 9.2 6.9-10.8 fL Neutrophils (%) (Auto) 85.6 H 37.0-80.0 % Lymphocytes (%) (Auto) 7.9 L 10.0-50.0 % Monocytes (%) (Auto) 5.1 0.0-12.0 % Eosinophils (%) (Auto) 0.8 0.0-7.0 % Basophils (%) (Auto) 0.6 0.0-2.0 % Neutrophils # (Auto) 11.3 H 1.6-8.6 10 ^3/uL Lymphocytes # (Auto) 1.0 0.4-5.4 10 ^3/uL Monocytes # (Auto) 0.7 0-1.3 10 ^3/uL Eosinophils # (Auto) 0.1 0-0.8 10 ^3/uL Basophils # (Auto) 0.1 0-0.2 10 ^3/uL Nucleated Red Blood Cells 0.2 % Total Bilirubin 0.9 0.2-1.0 mg/dL Aspartate Amino Transferase (AST) 33 13-40 U/L Alanine Aminotransferase (ALT) 20 7-40 U/L Alkaline Phosphatase 96 46-116 U/L Troponin I High Sensitivity 7 </=34 ng/L Total Protein 7.6 5.7-8.2 g/dL Albumin 4.8 3.2-4.8 g/dL Assessment Status post mechanical fall. Acute fracture of left orbit. Rule out structural heart disease. Hypertension. Hypokalemia. Thyroid disease. Obese. Plan/Recommendation I agree with your ongoing assessment and care of plan. Patient has been seen by Vanessa Pyle NP on my behalf, her and I discussed the plan with the patient. We will proceed with obtaining a transthoracic echocardiogram to evaluate cardiac function. After discussing events that led to patient coming to the emergency room, it was established that the patient sustained a mechanical fall. The patient denies any lightheadedness or dizziness prior to fall. The patient clearly remembers that she was walking up a front porch and tripped over a step. Additional plan as per the hospital course. A total of 45 minutes was spent reviewing the patient record, examining the patient, making a diagnostic and therapeutic plan, discussing this plan with medical personnel, following up on diagnostic studies and following the patient for clinical stability excluding any and all procedures. At least 50% of this time was spent in direct, [id number] contact. Plan discussed with: Patient Date of Service: Feb 15, 2024 Billing Provider: DIAMOND NAYLOR MD Cardiology Common Codes: 35286-[id number] INP/OBS CARE (High) Cardiology Consultation Codes: [id number] CONSULT <45MIN DIAMOND NAYLOR MD Feb 15, 2024 17:13
[2024-02-16] VITALS (9 sets, daily range): BP systolic 145–160; BP diastolic 54–83; PULSE 67–92; RESP 12–18; TEMP 97.7–98; O2SAT 93–100
--- NOTE | 2024-02-16 11:51 | DVHSR ---
APPROVED REPORT EXAM: Two-dimensional and M-mode echocardiogram with Doppler and color Doppler. Blood Pressure: 141/51 mmHg INDICATION Syncope RISK FACTORS Height: 5'6", Weight: 186 DIMENSIONS LVDd4.2 (3.8-5.7cm)LA (2D)3.5 (1.9-4.0cm)Aortic Root2.7 (2.0-3.7cm) LVDs2.7 (2.5-4.0cm)LA (MM) (1.9-4.0cm)Aortic Cusp Exc1.5 (1.5-2.0cm) EF (%) 62.0 (55-70%)Rt. Atrium3.4 (1.9-4.0cm)Asc. Aorta cm IVSd1.0 (0.7-1.1cm)RV (D)3.1 (1.8-2.4cm) PWd1.0 (0.7-1.1cm) Mitral Valve MitralMitral Stenosis E wave0.88m/sMV Mean GR.mmHg A wave1.01m/sMV Peak GR.mmHg E/A ratio0.92D MVAcm2 DECEL [id number] 1/2 Timems Aortic Valve Aortic ValveAortic Stenosis V11.11m/Shmuel Mean GR.4mmHg V21.32m/Shmuel Peak GR.7mmHg LVOT Diameter1.7 (1.8-2.4cm)Doppler AVA1.91cm2 Pulmonic Valve V21.05m/s Tricuspid Valve TR Velocity2.85m/s [id number] Conclusion MILD LVH AND MILD LV DIASTOLIC DYSFUNCTION LV EJECTION FRACTION OF 70% SLIGHTLY DILATED LA NORMAL VALVES NO EFFUSION NORMAL RV FUNCTION AND SIZE MILD PULMONARY HYPERTENSION RVSP IS 36 MM OF HG AND IS SLIGHTLY HIGH
--- NOTE | 2024-02-16 13:02 | ECG ---
[facility] Test Date: 2024-02-15 Test Time: 16:05:50 Pat Name: PAN DEL TORO 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
--- NOTE | 2024-02-16 13:05 | ECG ---
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
--- NOTE | 2024-02-16 15:53 | DVHPN2 ---
Subjective Patient was admitted with the hospitalist team. Maxillofacial CT finding has been noted which shows minimally displaced acute fracture of the orbit, maxillofacial surgery Department is not available eventually pupils try higher level of care. 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 Medications Current Medications Medications Dose Ordered Sig/Tha Route Start Time Stop Time Status Last Admin Dose Admin Ampicillin Sodium/ Sulbactam Sodium 3 gm/Sodium Chloride 100 ml @ 100 mls/hr Q6H IV 02/14/24 16:30 02/16/24 10:21 100 MLS/HR Diltiazem HCl 240 mg DAILY PO 02/15/24 10:00 02/16/24 08:48 240 MG Levothyroxine Sodium 112 mcg QAM@0600 PO 02/15/24 06:00 02/16/24 07:28 112 MCG Acetaminophen/ Hydrocodone Bitart 1 tab Q4HP PRN PO 02/14/24 19:30 02/15/24 01:23 1 TAB Ondansetron HCl 4 mg Q4HP PRN IV 02/14/24 19:30 Enoxaparin Sodium 40 mg DAILY SC 02/15/24 10:00 02/16/24 08:49 40 MG Acetaminophen 650 mg Q6HP PRN PO 02/14/24 19:30 02/16/24 08:49 650 MG Morphine Sulfate 2 mg Q6HPRN PRN IV 02/14/24 19:30 Nitroglycerin 0.4 mg Q5MINP PRN SL 02/14/24 19:30 Morphine Sulfate 2 mg Q30M PRN IV 02/14/24 19:30 Oxymetazoline HCl 2 spr BID EACHNOSTRI 02/14/24 22:45 02/16/24 08:50 2 SPR Laboratory Results Laboratory Tests 02/14/24 15:59 02/15/24 06:54 02/15/24 16:35 Chemistry Test 02/15/24 16:35 Magnesium Level 2.1 mg/dL (1.6-2.6) Lipid panel Test 02/15/24 16:35 Cholesterol Level 154 mg/dL (< 200) HDL Cholesterol 56 mg/dL (40-59) Triglycerides Level 93 mg/dL (< 150) HgA1c, TSH Test 02/15/24 16:35 Thyroid Stimulating Hormone (TSH) 2.86 uIU/mL (0.55-4.78) Assessment/Plan Assessment/Plan 78-year-old female with a known history of hypertension, hypothyroidism initially presented to the hospital with a status post mechanical fall found to have 1. Syncope with closed head injury 2. Left black eye 3. Acute minimally displaced fracture of the floor of the orbit left eye. 4. Hypertension 5. Hypothyroidism -social studies department chair consultation for higher level of care at maxillofacial surgery Department for acute minimally displaced fracture of the left orbit. -we will follow up Cardiology for any structural heart disease. 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
[2024-02-16] MEDS: hydrALAZINE HCL 20 MG/ML VL IV PRN (21:27)
--- NOTE | 2024-02-16 23:55 | DVHPN2 ---
Progress Note - Dictate Date Seen: Feb 16, 2024 Medical Necessity Reason Pt with a Central, PICC or Fol: No Subjective Patient was seen and evaluated in follow-up. Patient is complaining of generalized pain. Maxillofacial CT finding has been noted which shows minimally displaced acute fracture of the orbit, maxillofacial surgery Department is not available. Carotid Doppler is WNL. Lipid panel and TSH are unremarkable. vital signs Vital Sign Date Time Temp Pulse Resp B/P (MAP) Pulse Ox O2 Delivery O2 Flow Rate FiO2 02/16/24 22:00 97.9 76 18 160/81 (107) 94 97.9 02/16/24 19:59 Room Air* 0 21 Total Intake and Output 02/15/24 02/15/24 02/16/24 15:00 23:00 07:00 Intake Total 570 ml 280 ml 450 ml Balance 570 ml 280 ml 450 ml medications Current Medications Medications Dose Ordered Sig/Tha Route Start Time Stop Time Status Last Admin Dose Admin Ampicillin Sodium/ Sulbactam Sodium 3 gm/Sodium Chloride 100 ml @ 100 mls/hr Q6H IV 02/14/24 16:30 02/16/24 21:24 100 MLS/HR Diltiazem HCl 240 mg DAILY PO 02/15/24 10:00 02/16/24 08:48 240 MG Levothyroxine Sodium 112 mcg QAM@0600 PO 02/15/24 06:00 02/16/24 07:28 112 MCG Acetaminophen/ Hydrocodone Bitart 1 tab Q4HP PRN PO 02/14/24 19:30 02/15/24 01:23 1 TAB Ondansetron HCl 4 mg Q4HP PRN IV 02/14/24 19:30 Enoxaparin Sodium 40 mg DAILY SC 02/15/24 10:00 02/16/24 08:49 40 MG Acetaminophen 650 mg Q6HP PRN PO 02/14/24 19:30 02/16/24 08:49 650 MG Morphine Sulfate 2 mg Q6HPRN PRN IV 02/14/24 19:30 Nitroglycerin 0.4 mg Q5MINP PRN SL 02/14/24 19:30 Morphine Sulfate 2 mg Q30M PRN IV 02/14/24 19:30 Oxymetazoline HCl 2 spr BID EACHNOSTRI 02/14/24 22:45 02/16/24 21:24 2 SPR Hydralazine HCl 10 mg Q6HP PRN IV 02/16/24 21:15 02/16/24 21:27 10 MG objective GENERAL: Awake, alert, oriented. LUNGS: Clear. CARDIOVASCULAR: Heart sounds are good. ABDOMEN: Soft. SKIN: Large area of ecchymosis over left eye and bridge of nose. laboratory and microbiology Laboratory Tests 02/15/24 16:35 02/15/24 06:54 02/14/24 15:59 Test 02/15/24 06:54 Range/Units Serum Glucose 100 74-106 mg/dL Problem List Status post mechanical fall. Acute fracture of left orbit. Rule out structural heart disease. Hypertension. Hypokalemia. Thyroid disease. Obese. Assessment/Plan Continued all current supportive medical care. Morphine and [place] for pain management. IV antibiotics as ordered. Diltiazem. DVT prophylactics. Additional plan as per the hospital course. Plan discussed with: Patient DIAMOND NAYLOR MD Feb 16, 2024 23:33
[2024-02-17 01:00] VITALS: BP 158/74; PULSE 80; RESP 17; O2SAT 95
[2024-02-17 05:00] VITALS: BP 142/81; PULSE 86; RESP 18; TEMP 97.8; O2SAT 92
[2024-02-17 08:23] VITALS: PULSE 79
[2024-02-17 09:00] VITALS: BP 116/68; PULSE 79; RESP 18; TEMP 97.4; O2SAT 93
[2024-02-17 13:00] VITALS: BP 146/78; PULSE 72; RESP 18; TEMP 98.1; O2SAT 97
--- NOTE | 2024-02-17 16:04 | DVHDS2 ---
Discharge Summary Date of Admission Feb 14, 2024 at 19:17 Date of Discharge: Feb 17, 2024 Labs/Diagnostic Data: Laboratory Results Test 02/15/24 16:35 02/15/24 06:54 02/14/24 15:59 Potassium Level 3.2 mmol/L (3.5-5.1) Magnesium Level 2.1 mg/dL (1.6-2.6) Triglycerides Level 93 mg/dL (< 150) Cholesterol Level 154 mg/dL (< 200) LDL Cholesterol 86 mg/dL (< 100) HDL Cholesterol 56 mg/dL (40-59) Thyroid Stimulating Hormone (TSH) 2.86 uIU/mL (0.55-4.78) Sodium Level 140 mmol/L (136-145) Chloride Level 106 mmol/L (98-107) Carbon Dioxide Level 28 mmol/L (20-31) Anion Gap 6 (5-15) Blood Urea Nitrogen 19 mg/dL (9-23) Creatinine 0.86 mg/dL (0.550-1.02) Glomerular Filtration Rate Calc 69 mL/min (>90) BUN/Creatinine Ratio 22.1 (10.0-20.0) Serum Glucose 100 mg/dL (74-106) Calcium Level 9.8 mg/dL (8.7-10.4) White Blood Count 13.2 10^3/uL (4.4-10.8) Red Blood Count 5.42 10^6/uL (4.0-5.20) Hemoglobin 17.2 g/dL (12.2-16.2) Hematocrit 49.3 % (36.0-46.0) Mean Corpuscular Volume 91.0 fL (80.0-100.0) Mean Corpuscular Hemoglobin 31.8 pg (28.0-32.0) Mean Corpuscular Hemoglobin Concent 34.9 g/dL (32.0-36.0) Red Cell Distribution Width 13.3 % (11.8-14.3) Platelet Count 251 10^3/uL (140-450) Mean Platelet Volume 9.2 fL (6.9-10.8) Neutrophils (%) (Auto) 85.6 % (37.0-80.0) Lymphocytes (%) (Auto) 7.9 % (10.0-50.0) Monocytes (%) (Auto) 5.1 % (0.0-12.0) Eosinophils (%) (Auto) 0.8 % (0.0-7.0) Basophils (%) (Auto) 0.6 % (0.0-2.0) Neutrophils # (Auto) 11.3 10 ^3/uL (1.6-8.6) Lymphocytes # (Auto) 1.0 10 ^3/uL (0.4-5.4) Monocytes # (Auto) 0.7 10 ^3/uL (0-1.3) Eosinophils # (Auto) 0.1 10 ^3/uL (0-0.8) Basophils # (Auto) 0.1 10 ^3/uL (0-0.2) Nucleated Red Blood Cells 0.2 % Total Bilirubin 0.9 mg/dL (0.2-1.0) Aspartate Amino Transferase (AST) 33 U/L (13-40) Alanine Aminotransferase (ALT) 20 U/L (7-40) Alkaline Phosphatase 96 U/L (46-116) Troponin I High Sensitivity 7 ng/L (</=34) Total Protein 7.6 g/dL (5.7-8.2) Albumin 4.8 g/dL (3.2-4.8) Other Laboratory Tests 02/15/24 16:35 02/15/24 06:54 02/14/24 15:59 Brief Hx & Hospital Course: 78-year-old female with a known history of hypertension, hypothyroidism initially presented to the hospital with a status post mechanical fall found to have closed head injury and left black eye. Patient was found to have minimally displaced orbital fracture. I initially recommended to higher level of care. [facility] has declined transfer as it can be seen as an outpatient. All also called [facility] who accepted the patient as an outpatient. Patient was also requested to see I specialist and maxillofacial surgeon as an outpatient has a has been getting chemotherapy. Patient was currently stable to be discharged with close follow up as an outpatient with the PCP, Ophthalmology, maxillofacial surgeon as an outpatient within one week. Patient was stated that she has a mild blurriness in the IA but is getting better, extraocular movements were examined which he was are intact. Condition at Discharge: Stable Final Diagnosis/Problems List 1. Syncope with closed head injury 2. Left black eye 3. Acute minimally displaced fracture of the floor of the orbit left eye. [facility] has a decline transfer and can see the patient was an outpatient. Patient was agrees to current plan of care. 4. Hypertension 5. Hypothyroidism Discharge Disposition: Home with Health Services SNF Discharge Will this Physician continue t: No Discharge Instruct/Medications Diet: Cardiac 2g Na,low cholest Activity: No Restrictions, As Tolerated Follow Up/Referral: Follow up with the PCP in 1-2 weeks Follow up with outpatient ophthalmology in one week Follow up with maxillofacial surgeon at higher level of care for left orbital fracture in one week. Medications: Will resume home medication Discharge Statement: "Patient was advised to return to the ER or call 911 if any headaches, dizziness, shortness of breath, chest pain, abdominal pain, bleeding, fevers, or worsening of medical condition. Patient was counseled about treatment plan, medications, possible side effects, patientverbalized understanding. All questions were answered to the best of my ability. This discharge took greater then 30 minutes in planning, reviewing documentation, counseling the patient, and discussing with other team members." ASSESSMENT ASSESSMENT Assessment 78-year-old female with a known history of hypertension, hypothyroidism initially presented to the hospital with a status post mechanical fall found to have 1. Syncope with closed head injury 2. Left black eye 3. Acute minimally displaced fracture of the floor of the orbit left eye. [facility] has a decline transfer and can see the patient was an outpatient. Patient was agrees to current plan of care. 4. Hypertension 5. Hypothyroidism Date of Service: Feb 17, 2024 Billing Provider: CHARLETTE CLARK MD Common Visit Codes: NOT BILLABLE CHARLETTE CLARK MD Feb 17, 2024 16:04
[2024-02-17 17:00] VITALS: BP 150/75; PULSE 77; RESP 18; TEMP 98; O2SAT 96
--- NOTE | 2024-02-17 23:35 | DVHPN2 ---
Progress Note - Dictate Date Seen: Feb 17, 2024 Medical Necessity Reason Pt with a Central, PICC or Fol: No Subjective Patient was seen and evaluated in follow up. Patient has no new complaints at this time. Patient denies any cardiac symptoms. Patient is cardiac stable for discharge. vital signs Vital Sign Date Time Temp Pulse Resp B/P (MAP) Pulse Ox O2 Delivery O2 Flow Rate FiO2 02/17/24 17:00 98.0 77 18 150/75 (100) 96 98.0 02/17/24 08:23 Room Air* 0 21 Total Intake and Output 02/16/24 02/16/24 02/17/24 15:00 23:00 07:00 Intake Total 100 ml 100 ml 500 ml Balance 100 ml 100 ml 500 ml objective GENERAL: Awake, alert, oriented. LUNGS: Clear. CARDIOVASCULAR: Heart sounds are good. ABDOMEN: Soft. SKIN: Large area of ecchymosis over left eye and bridge of nose. laboratory and microbiology Laboratory Tests 02/15/24 16:35 02/15/24 06:54 02/14/24 15:59 Test 02/15/24 06:54 Range/Units Serum Glucose 100 74-106 mg/dL Problem List Status post mechanical fall. Acute fracture of left orbit. Rule out structural heart disease. Hypertension. Hypokalemia. Thyroid disease. Obese. Assessment/Plan Continued all current supportive medical care. Morphine and [place] for pain management. IV antibiotics as ordered. Diltiazem. DVT prophylactics. Additional plan as per the hospital course. Plan discussed with: Patient DIAMOND NAYLOR MD Feb 17, 2024 23:35
== END 2024-02-17 17:21 | disposition home health service (06) | DRG 125 ==
LOC: ER 13:46 → TELE 19:17 → TELE-WESTW 22:36
PROVIDERS: ADMIT Nurse Practitioner; ATTEND Internal Medicine
DX: S02.32XA Fracture of orbital floor, left side, initial encounter for closed fracture (principal); E66.9 Obesity, unspecified; E03.9 Hypothyroidism, unspecified; M47.9 Spondylosis, unspecified; I10 Essential (primary) hypertension; E87.6 Hypokalemia; W01.0XXA Fall on same level from slipping, tripping and stumbling without subsequent striking against object, initial encounter; Y93.01 Activity, walking, marching and hiking; S00.03XA Contusion of scalp, initial encounter; Z90.710 Acquired absence of both cervix and uterus; Z80.3 Family history of malignant neoplasm of breast; Z68.30 Body mass index [BMI] 30.0-30.9, adult; Y93.89 Activity, other specified; Y92.89 Other specified places as the place of occurrence of the external cause; Y99.8 Other external cause status; Z79.899 Other long term (current) drug therapy
CPT/HCPCS: 36415; 70450; 70486; 72125; 80048; 80053; 80061; 83735; 84132; 84443; 84484; 85025; 93005; 93306; 93886; G0378